=== PATIENT | female | born 1980 | race Caucasian/White ===

== ENCOUNTER → 2020-12-18 | Outpatient (CLI) | payer OTHER ==
[~2020-12-18] MED LIST: Colace100 MG PO; Miralax17 GM PO
== END | disposition home or self-care (01) ==
LOC: LAB SHORT 13:00 → LAB 13:00
DX: R30.0 Dysuria (principal)
CPT/HCPCS: 87077; 87086; 87147; 87186

== ENCOUNTER → 2021-03-17 | Outpatient (CLI) | payer OTHER | LOC: LAB SHORT 11:45 → LAB 11:45 | DX: R30.0 Dysuria (principal); M54.9 Dorsalgia, unspecified | CPT/HCPCS: 87086; 87147 ==

== ENCOUNTER → 2021-08-09 | Outpatient (CLI) | payer OTHER | END | disposition home or self-care (01) | LOC: LAB SHORT 11:40 | DX: R30.0 Dysuria (principal) | CPT/HCPCS: 87077; 87086; 87147; 87186 ==

== ENCOUNTER 2025-02-26 09:32 | Day surgery (SDC) | payer OTHER ==
[~2025-02-26] VITALS: Ht 162.6 cm; Wt 113.9 kg
[2025-02-26 10:05] VITALS: BP 171/90
--- NOTE | 2025-02-26 10:11 | NUR ---
Ambulatory in Day Surgery. History, Chart, Medications and Allergies reviewed before start of procedure. Patient confirms NPO status and agrees with scheduled surgery. Pre-Op teaching done. Pt verbalizes understanding. Patient States Post-Procedure ride home has been arranged. Pt belongings placed underneath [facility] for safekeeping.
--- NOTE | 2025-02-26 11:01 | NUR ---
02/26/25 1101 Jose Luis Loco History, Chart, Medications and Allergies reviewed before start of procedure.MONITOR INTACT WITH CONTINUOUS PULSE OXIMETRY, CONTINUOUS END TITAL CO2, 3-LEAD EKG AND INTERMITTENT BLOOD PRESSURE.O2 VIA POM INTACT THROUGHOUT SEDATION/PROCEDURE.See Anesthesia record.
--- NOTE | 2025-02-26 13:13 | NUR ---
Patient States Post-Procedure ride home has been arranged. Discharged via wheelchair to private car for ride home. Discharge instructions reviewed with patient. Patient verbalizes understanding. Copy given to patient to take home. PT NEEDED MORE EMOTIONAL SUPPORT AFTER PROCEDURE, THE D/C TOOK LONGER THAN TYPICAL PT DOING WELL
[2025-02-26 13:32] VITALS: BP 150/81
--- NOTE | 2025-02-26 13:53 | NUR ---
PT DOING WELL PAIN WELL CONTROLLED WITH MEDICATION GIVEN IN PACU VSS Patient States Post-Procedure ride home has been arranged. Discharged via wheelchair to private car for ride home. Discharge instructions reviewed with patient. Patient verbalizes understanding. Copy given to patient to take home.
--- NOTE | 2025-02-26 13:55 | NUR ---
DISREGARD NOTE AT 1352 NOT FOR THIS PATIENT
== END 2025-02-26 23:00 | disposition home or self-care (01) ==
LOC: ORSCMMR 09:32 → ORD 11:00 → ORSCMMR 23:00
PROVIDERS: Internal Medicine Gastroenterology
PROC: 0DBK8ZX Excision of Ascending Colon, Via Natural or Artificial Opening Endoscopic, Diagnostic (ICD-10-PCS; principal; 2025-02-26 11:00)
PROC: 0DB48ZX Excision of Esophagogastric Junction, Via Natural or Artificial Opening Endoscopic, Diagnostic (ICD-10-PCS; principal; 2025-02-26 11:00)
PROC: 0DBN8ZX Excision of Sigmoid Colon, Via Natural or Artificial Opening Endoscopic, Diagnostic (ICD-10-PCS; principal; 2025-02-26 11:00)
PROC: 0DB68ZX Excision of Stomach, Via Natural or Artificial Opening Endoscopic, Diagnostic (ICD-10-PCS; principal; 2025-02-26 11:00)
PROC: 0DB58ZX Excision of Esophagus, Via Natural or Artificial Opening Endoscopic, Diagnostic (ICD-10-PCS; principal; 2025-02-26 11:00)
DX: R13.14 Dysphagia, pharyngoesophageal phase (principal); K29.50 Unspecified chronic gastritis without bleeding; K21.9 Gastro-esophageal reflux disease without esophagitis; Z12.11 Encounter for screening for malignant neoplasm of colon; K63.5 Polyp of colon; F41.9 Anxiety disorder, unspecified; E66.01 Morbid (severe) obesity due to excess calories; Z68.41 Body mass index [BMI] 40.0-44.9, adult
CPT/HCPCS: 88305; 88342; C1726; J2704; J7120